=== PATIENT | male | born 1960 | race Caucasian/White ===

== ENCOUNTER 2017-10-29 10:24 | Day surgery (SDC) | payer OTHER ==
[~2017-10-29] VITALS: Ht 182.9 cm; Wt 100.9 kg
[~2017-10-29 10:24] MED LIST: ALBU90OI INH; ALBU90OI6 INH; ALBU90OI61 INH; ALLO100 PO; ALPR1 PO; AMOX1XR PO; ASPI325 PO; ASPI325EC PO; ATOR10; Albuterol2.5 MG/0.5 INH; BACL10 PO; BENZ100A PO; BUME1 PO; BUME2 PO; CALCAVITDA PO; CLARITIN10 MG PO; CRUTCH4 USE; DULERA 100 MCG/13 GM INH; Diovan40 MG PO; FLUSAL2505 IH; FURO40 PO; Ferrous Sulfat325 MG PO; Gas-X125 MG PO; IBUP800 PO; IPRATR-ALBUTEROL; KETO10 PO; LEVO750 PO; LIDO700A20 TOP; MECL25 PO; METO50ER; MONTELUKAST SOD10 MG PO; Micro-K10 MEQ PO; NEBI5 PO; NITR.4SL SL; Nitrostat0.4 MG SL; OMEP20ER PO; OMEPRAZOLE MAGN20 MG PO; ONDA4ODT MM; OXYACE5T PO; POTA10T PO; PRED10 PO; PRED5 PO; PROAIR RESPICL90 MCG INH; PSEU120ER PO; ROPI1 PO; ROPI2 PO; RXOXYACE PO; Requip3 MG PO; SULPREOPSO OD; SYMBICORT; TIOT18 INH; TORS10 PO; TORSE20 PO; Tessalon Perle100 MG PO; VALS80 PO; VITAMIN C500 MG PO; Valium5 MG PO; ZOLP10 PO; Zithromax Tri-500 MG PO
== END 2017-10-29 15:04 | disposition home or self-care (01) ==
LOC: ORSCSDS 10:24
PROVIDERS: Orthopaedic Surgery
PROC: 0RNJ4ZZ Release Right Shoulder Joint, Percutaneous Endoscopic Approach (ICD-10-PCS; principal; 2017-10-29 12:00)
PROC: 0LQ14ZZ Repair Right Shoulder Tendon, Percutaneous Endoscopic Approach (ICD-10-PCS; principal; 2017-10-29 12:00)
PROC: 0LS14ZZ Reposition Right Shoulder Tendon, Percutaneous Endoscopic Approach (ICD-10-PCS; principal; 2017-10-29 12:00)
PROC: 0RBJ4ZZ Excision of Right Shoulder Joint, Percutaneous Endoscopic Approach (ICD-10-PCS; principal; 2017-10-29 12:00)
DX: M75.121 Complete rotator cuff tear or rupture of right shoulder, not specified as traumatic (principal); M75.21 Bicipital tendinitis, right shoulder; M75.41 Impingement syndrome of right shoulder; M75.01 Adhesive capsulitis of right shoulder; I10 Essential (primary) hypertension; I25.2 Old myocardial infarction; I50.9 Heart failure, unspecified; J44.9 Chronic obstructive pulmonary disease, unspecified; Z79.899 Other long term (current) drug therapy; Z79.82 Long term (current) use of aspirin
CPT/HCPCS: C1713; J0171; J0690; J1100; J2250; J2405; J3010; J7120

== ENCOUNTER 2018-01-04 05:45 | Emergency (ER) | payer OTHER ==
[~2018-01-04] VITALS: Ht 182.9 cm; Wt 106.6 kg
[2018-01-04] MEDS ORDERED: Valium5 MG PO (06:47)
[2018-01-04] MEDS ORDERED: Prednisone20 MG PO (06:47)
== END 2018-01-04 07:20 | disposition home or self-care (01) ==
LOC: ER 05:45
DX: T14.8XXA Other injury of unspecified body region, initial encounter (principal); M25.551 Pain in right hip; M25.511 Pain in right shoulder; I25.2 Old myocardial infarction; Z88.5 Allergy status to narcotic agent; Z91.012 Allergy to eggs; Z79.52 Long term (current) use of systemic steroids; Z91.018 Allergy to other foods; Z88.7 Allergy status to serum and vaccine; Z88.2 Allergy status to sulfonamides; Z91.048 Other nonmedicinal substance allergy status; Z91.02 Food additives allergy status; Z88.8 Allergy status to other drugs, medicaments and biological substances; Z79.899 Other long term (current) drug therapy; Z79.82 Long term (current) use of aspirin; Z87.891 Personal history of nicotine dependence; W19.XXXA Unspecified fall, initial encounter
CPT/HCPCS: 73030; 73502; J1885

== ENCOUNTER 2018-03-11 14:41 | Day surgery (SDC) | payer OTHER ==
[~2018-03-11 14:41] MED LIST changes: +Prednisone20 MG PO
== END 2018-03-11 22:49 | disposition home or self-care (01) ==
LOC: RAD 14:41 → MRI 16:00 → RAD 22:49
PROC: BP38ZZZ Magnetic Resonance Imaging (MRI) of Right Shoulder (ICD-10-PCS; principal; 2018-03-11)
DX: M75.121 Complete rotator cuff tear or rupture of right shoulder, not specified as traumatic (principal); M75.41 Impingement syndrome of right shoulder; M75.21 Bicipital tendinitis, right shoulder
CPT/HCPCS: 23350; 73222; 77002; A9577; Q9967

== ENCOUNTER 2018-04-14 11:37 | Emergency (ER) | payer OTHER ==
[~2018-04-14] VITALS: Ht 152.4 cm; Wt 99.8 kg
[2018-04-14] MEDS ORDERED: POTCHL10ER PO (12:06)
[2018-04-14] MEDS ORDERED: IBUP800 PO (12:06)
[2018-04-14 12:13] LABS: International Normalized Ratio 0.99; Prothrombin Time Results 10.2 Sec (9.7-11.5)
[2018-04-14] MEDS ORDERED: Percocet 5-3251 EACH PO (15:10)
[2018-04-14] MEDS ORDERED: Zofran Odt4 MG SL (15:10)
== END 2018-04-14 16:00 | disposition home or self-care (01) ==
LOC: ER 11:37
PROVIDERS: Nurse Practitioner Family
DX: M79.671 Pain in right foot (principal); M25.571 Pain in right ankle and joints of right foot; I10 Essential (primary) hypertension; I25.10 Atherosclerotic heart disease of native coronary artery without angina pectoris; I25.2 Old myocardial infarction; Z88.5 Allergy status to narcotic agent; Z91.012 Allergy to eggs; Z91.018 Allergy to other foods; Z88.7 Allergy status to serum and vaccine; Z88.2 Allergy status to sulfonamides; Z88.8 Allergy status to other drugs, medicaments and biological substances; Z79.899 Other long term (current) drug therapy; Z79.82 Long term (current) use of aspirin; Z87.891 Personal history of nicotine dependence
CPT/HCPCS: 36415; 73610; 85610; 93922; 96374; 99284-25; J1885

== ENCOUNTER 2018-10-05 16:14 | Emergency (ER) | payer OTHER ==
[~2018-10-05] VITALS: Ht 180.3 cm; Wt 99.3 kg
[~2018-10-05 16:14] MED LIST changes: +ALBU3IS NEB; -Albuterol2.5 MG/0.5 INH; -MECL25 PO; +MOTION RELIEF25 MG PO; +POTCHL10ER PO; +Percocet 5-3251 EACH PO; -TORSE20 PO; +Zofran Odt4 MG SL
== END 2018-10-05 16:55 | disposition home or self-care (01) ==
LOC: ER 16:14
DX: J39.2 Other diseases of pharynx (principal); Z88.5 Allergy status to narcotic agent; Z91.012 Allergy to eggs; Z88.2 Allergy status to sulfonamides; Z91.048 Other nonmedicinal substance allergy status; Z79.899 Other long term (current) drug therapy; Z79.82 Long term (current) use of aspirin; I25.2 Old myocardial infarction; Z95.5 Presence of coronary angioplasty implant and graft; Z87.891 Personal history of nicotine dependence
CPT/HCPCS: 99282; Q0163

== ENCOUNTER 2018-10-30 12:10 | Emergency (ER) | payer OTHER ==
[~2018-10-30] VITALS: Ht 182.9 cm; Wt 97.5 kg
[2018-10-30 13:07] LABS: BASOPHILS ABSOLUTE AUTO 0.06 K/mm3 (0.00-0.23); BASOPHILS PERCENT AUTO 1 % (0-2); EOSINOPHILS ABSOLUTE AUTO 0.13 K/mm3 (0.00-0.68); EOSINOPHILS PERCENT AUTO 1 % (0-6); Hematocrit 41.1 % (37.0-53.0); Hemoglobin 13.3 g/dL (13.5-17.5); IMMATURE GRAN ABSOLUTE AUTO 0.02 K/mm3 (0.00-0.10); IMMATURE GRAN PERCENT AUTO 0 % (0-1); LYMPHOCYTES ABSOLUTE AUTO 1.99 K/mm3 (0.84-5.20); LYMPHOCYTES PERCENT AUTO 20 % (21-46); MONOCYTES ABSOLUTE AUTO 0.72 K/mm3 (0.16-1.47); MONOCYTES PERCENT AUTO 7 % (4-13); Mean Corpuscular HGB 27.3 pg (26.0-34.0); Mean Corpuscular HGB Conc 32.4 g/dL (31.5-36.5); Mean Corpuscular Volume 84 fL (80-100); Mean Platelet Volume 10.6 fL (9.1-12.4); NEUTROPHILS ABSOLUTE AUTO 7.01 K/mm3 (1.96-9.15); NEUTROPHILS PERCENT AUTO 71 % (41-73); Platelet Count 229 K/mm3 (150-400); RDW Coefficient Variation 13.8 % (11.7-14.2); RDW Standard Deviation 42.2 fL (35.1-46.3); Red Blood Cell Count 4.88 M/mm3 (4.30-5.90); White Blood Cell Count 9.93 K/mm3 (4.00-11.30)
[2018-10-30] MEDS ORDERED: NITR.4SL SL (13:20)
[2018-10-30 13:22] LABS: Alanine Aminotransfer (ALT/SGP 12 U/L (12-78); Albumin, Blood 3.3 g/dL (3.4-5.0); Albumin/Globulin Ratio 0.7 (0.8-1.8); Alk Phos 104 U/L (50-136); Anion Gap 8 mmol/L (6-16); Aspartate Aminotrans (AST/SGOT 26 U/L (12-37); Bilirubin, Total 0.4 mg/dL (0.1-1.0); Blood Urea Nitrogen 7 mg/dL (8-24); CO2, Blood 26 mmol/L (21-32); Calcium, Blood 8.6 mg/dL (8.5-10.1); Chloride, Blood 104 mmol/L (98-108); Creatinine, Blood 1.17 mg/dL (0.60-1.20); Globulin, Blood 4.7 g/dL (2.2-4.0); Glomerular Filtration Rate >60 (60-); Glucose, Blood 93 mg/dL (70-99); Potassium, Blood 3.8 mmol/L (3.5-5.5); Sodium, Blood 138 mmol/L (136-145)
== END 2018-10-30 15:36 | disposition home or self-care (01) ==
LOC: ER 12:10
PROVIDERS: Emergency Medicine
DX: R53.1 Weakness (principal); R42 Dizziness and giddiness; I10 Essential (primary) hypertension; I25.10 Atherosclerotic heart disease of native coronary artery without angina pectoris; I25.2 Old myocardial infarction; Z88.5 Allergy status to narcotic agent; Z91.012 Allergy to eggs; Z91.018 Allergy to other foods; Z88.7 Allergy status to serum and vaccine; Z88.8 Allergy status to other drugs, medicaments and biological substances; Z91.048 Other nonmedicinal substance allergy status; Z91.02 Food additives allergy status; Z79.899 Other long term (current) drug therapy; Z79.82 Long term (current) use of aspirin; Z87.891 Personal history of nicotine dependence
CPT/HCPCS: 70450; 80053; 85025; 93005; 93010; 96360; 99284-25; J7030

== ENCOUNTER 2018-11-10 20:56 | Inpatient (IN) | payer OTHER ==
[~2018-11-10] VITALS: Ht 182.9 cm; Wt 96.5 kg
[2018-11-10 21:31] LABS: BASOPHILS ABSOLUTE AUTO 0.05 K/mm3 (0.00-0.23); BASOPHILS PERCENT AUTO 0 % (0-2); EOSINOPHILS ABSOLUTE AUTO 0.19 K/mm3 (0.00-0.68); EOSINOPHILS PERCENT AUTO 2 % (0-6); Hematocrit 38.6 % (37.0-53.0); Hemoglobin 12.6 g/dL (13.5-17.5); IMMATURE GRAN ABSOLUTE AUTO 0.05 K/mm3 (0.00-0.10); IMMATURE GRAN PERCENT AUTO 0 % (0-1); LYMPHOCYTES ABSOLUTE AUTO 2.06 K/mm3 (0.84-5.20); LYMPHOCYTES PERCENT AUTO 18 % (21-46); MONOCYTES ABSOLUTE AUTO 0.91 K/mm3 (0.16-1.47); MONOCYTES PERCENT AUTO 8 % (4-13); Mean Corpuscular HGB 27.8 pg (26.0-34.0); Mean Corpuscular HGB Conc 32.6 g/dL (31.5-36.5); Mean Corpuscular Volume 85 fL (80-100); Mean Platelet Volume 10.1 fL (9.1-12.4); NEUTROPHILS ABSOLUTE AUTO 8.07 K/mm3 (1.96-9.15); NEUTROPHILS PERCENT AUTO 71 % (41-73); Platelet Count 233 K/mm3 (150-400); RDW Coefficient Variation 14.3 % (11.7-14.2); RDW Standard Deviation 44.2 fL (35.1-46.3); Red Blood Cell Count 4.54 M/mm3 (4.30-5.90); White Blood Cell Count 11.33 K/mm3 (4.00-11.30)
[2018-11-10 21:54] LABS: Alanine Aminotransfer (ALT/SGP 9 U/L (12-78); Albumin, Blood 3.2 g/dL (3.4-5.0); Albumin/Globulin Ratio 0.7 (0.8-1.8); Alk Phos 107 U/L (50-136); Anion Gap 12 mmol/L (6-16); Aspartate Aminotrans (AST/SGOT 23 U/L (12-37); Bilirubin, Total 0.4 mg/dL (0.1-1.0); Blood Urea Nitrogen 6 mg/dL (8-24); Bun/Creatinine Ratio 5.3 (12.0-20.0); CO2, Blood 21 mmol/L (21-32); Calcium, Blood 8.9 mg/dL (8.5-10.1); Chloride, Blood 110 mmol/L (98-108); Creatinine, Blood 1.13 mg/dL (0.60-1.20); Globulin, Blood 4.8 g/dL (2.2-4.0); Glomerular Filtration Rate >60 (60-); Glucose, Blood 90 mg/dL (70-99); Potassium, Blood 3.4 mmol/L (3.5-5.5); Sodium, Blood 143 mmol/L (136-145)
[2018-11-10 21:58] LABS: Troponin I 0.755 ng/mL (0.000-0.040)
[2018-11-10] MEDS ORDERED: LOSA25 PO (23:27)
[2018-11-10 23:28] LABS: International Normalized Ratio 0.96; Prothrombin Time Results 10.2 Sec (9.7-11.5)
[2018-11-10] MEDS ORDERED: C-1000 WITH R1000 MG PO (23:29)
[2018-11-10] MEDS ORDERED: ALPR.5 PO (23:31)
[2018-11-10] MEDS ORDERED: Vitamin B-121000 MCG PO (23:32)
--- NOTE | 2018-11-11 01:55 | NUR ---
ASSUMED CARE OF PT. VS STABLE. PT COMPLAINS OF HEADACHE. PT STATES HE RECENTLY HAD AN OCULAR NERVE BLOCK DUE TO CHRONIC MIGRAINES. PT STATES HIS CHEST PAIN RETURNED AT 9/10 SHARP PAIN. PT MEDICATED PER EMAR. PT STATES PAIN HAS RESLOVED TO 4/10. HEPARIN GTT INF. LACTIC ACID ELEVATED AT 2.5. DR LEA NOTIFIED AND NO NEW ORDERS PROVIDED AT THIS TIME. PT IS DIAPHORETIC. FAN PROVIDED AND COOL COMPRESS FOR THE HEADACHE. PT STATES SOME RELIEF. PT HAS LEFT SIDED WEAKNESS DUE TO PREVIOUS CVA. PT STATES HE WALKS AT HOME, BUT NEEDS ASSISTANCE WITH ADLS AND HAS A CAREGIVER. WILL CONTINUE TO MONITOR. CALL LIGHT IN REACH.
--- NOTE | 2018-11-11 04:48 | NUR ---
SHIFT SUMMARY PT ALERT AND ORIENTED. VS STABLE. NO CHANGES SINCE INITIAL ASSESSMENT. PT RESTING AT THIS TIME WITH OBVIOUS CHEST RISE AND FALL. WILL CONTINUE TO MONITOR AND REPORT TO ONCOMING RN. CALL LIGHT IN REACH.
[2018-11-11 05:41] LABS: Hematocrit 41.6 % (37.0-53.0); Hemoglobin 13.2 g/dL (13.5-17.5); Mean Corpuscular HGB Conc 31.7 g/dL (31.5-36.5); Mean Corpuscular Volume 85 fL (80-100); Platelet Count 226 K/mm3 (150-400); RDW Coefficient Variation 14.6 % (11.7-14.2); RDW Standard Deviation 45.1 fL (35.1-46.3); Red Blood Cell Count 4.88 M/mm3 (4.30-5.90); White Blood Cell Count 8.29 K/mm3 (4.00-11.30)
[2018-11-11 06:03] LABS: Alanine Aminotransfer (ALT/SGP 12 U/L (12-78); Albumin, Blood 3.1 g/dL (3.4-5.0); Albumin/Globulin Ratio 0.7 (0.8-1.8); Alk Phos 104 U/L (50-136); Anion Gap 7 mmol/L (6-16); Aspartate Aminotrans (AST/SGOT 22 U/L (12-37); Bilirubin, Total 0.7 mg/dL (0.1-1.0); Blood Urea Nitrogen 8 mg/dL (8-24); Bun/Creatinine Ratio 7.8 (12.0-20.0); CO2, Blood 24 mmol/L (21-32); Calcium, Blood 8.4 mg/dL (8.5-10.1); Chloride, Blood 110 mmol/L (98-108); Creatinine, Blood 1.03 mg/dL (0.60-1.20); Globulin, Blood 4.6 g/dL (2.2-4.0); Glomerular Filtration Rate >60 (60-); Glucose, Blood 106 mg/dL (70-99); Potassium, Blood 4.6 mmol/L (3.5-5.5); Sodium, Blood 141 mmol/L (136-145); Total Protein, Blood 7.7 g/dL (6.4-8.2)
[2018-11-11 06:21] LABS: Troponin I 0.558 ng/mL (0.000-0.040)
--- NOTE | 2018-11-11 09:10 | NUR ---
Echocardiogram completed.
[2018-11-11 11:17] LABS: Source, Urine Clean Catch
--- NOTE | 2018-11-11 11:19 | NUR ---
BEGINNING OF SHIFT Assumed care at 0700. Report recieved from Digna SHIRLEY. Pt on 2 LPM NC. Titrated to room air. Tolerated well. Home requip obtained. Caregiver did not bring in home bystolic. Pt states he is feeling short of breath but this is normal for him "for a few weeks". Bed in lowest position. Call light in reach. Pt denies need at this time.
[2018-11-11 11:40] LABS: Appearance, Urine Clear (Clear); Bilirubin, Urine Neg (Neg); Blood, Urine Neg (Neg); Color, Urine Yellow (P-Yellow); Glucose Qualitative, Urine Neg (Neg); Ketones, Urine Neg (Neg); Leukocyte Esterase, Urine Neg (Neg); Nitrite, Urine Neg (Neg); Protein, Urine Neg (Neg); Specific Gravity, Urine 1.015 (1.003-1.022); Urobilinogen, Urine NORM (Normal)
--- NOTE | 2018-11-11 12:59 | NUR ---
UPDATE This RN paged Dr Delaney with new cardiology consult. New orders recieved. Pt states he is itchy. The pt states he does not want to take his requip or bystolic since they have blue dye and he is now certain that is what is causing his itchiness. This RN placed call to Dr Castellon to notify him of pt's wishes. New orders entered for carvedilol. Will continue to closely monitor.
[2018-11-11 13:51] LABS: Troponin I 0.439 ng/mL (0.000-0.040)
--- NOTE | 2018-11-11 14:56 | NUR ---
Initial palliative care consult: Met with Jonnathan by request from nursing. Jonnathan is a 58 year old with a history of back surgery, CAD, CVA, Hep C, lung cancer, ALS. He was admitted with a pneumonia. He is accompanied by two friends and his live in 24 hr/day caregiver. He is estranged from his family except for his 19 year old granddaughter. He is very clear in stating that he doesn't want to seek any medical treatment for his lung cancer. He reports several family members uncles, grandfather, father who have from cancer after being "miserable from the treatments." He wishes to go home and live out his life how he wants to live it. He recounts many life adventures and activities that he is very proud of. He wants to have control of the life that he has left. He currently fired his last PCP, however he has an appointment with his new PCP on 11/18 Zach at [facility]. He is requesting to be discharged today if possible and would like to have hospice services provided by [facility]. Updated nursing who will contact Dr. Castellon for discharge orders. Dr. Castellon has already placed a hospice referral in the EMR. LM for Gricelda Mijares CM RN of pt's wishes to go home with hospice as soon as possible. Pt states that if hospice cannot not see him for a few days that he still wishes to be discharged today. Explained hospice services to pt, friends and caregiver. Questions answered.
[2018-11-11] MEDS ORDERED: ALBU3IS INH (17:00)
[2018-11-11] MEDS ORDERED: CARV3.125 PO (17:10)
[2018-11-11] MEDS ORDERED: DOCU100 PO (17:11)
[2018-11-11] MEDS ORDERED: TIOT18 INH (17:12)
[2018-11-11] MEDS ORDERED: DULERA 100 MCG/13 GM INH (17:12)
[2018-11-11] MEDS ORDERED: IBUP600 PO (17:13)
--- NOTE | 2018-11-11 18:21 | NUR ---
PT DEPARTURE FROM UNIT This RN requested palliative care to speak with patient regarding advanced care planning. Dr Delaney spoke to pt and reinforced need for palliative care for this patient. Gricelda from palliative care spoke to pt. Orders entered by Dr Castellon for hospice referral. This RN placed call to Dr Castellon for discharge orders as pt wanted to go home. This RN asked Gricelda from marriage and family social worker to speak with patient. Discharge orders were entered by Dr Castellon. This RN provided an update to pt and family, and stated that this RN would get started on the discharge paperwork. This RN continued to check on patient and caregiver, to provide updates and ask questions (i.e. which pharmacy to send medication orders to). This RN called in new medications to [facility] in [place], speaking to pharmacist and requesting medications are available for pickup this evening, acknowledging that they close at 6 pm. At 1705, Carolina MARES asked this RN if pt was going home, as pt was not in room and staff had seen the pt leaving the unit via wheelchair with the caregiver and her two male companions. This RN checked patient entrance and emergency entrace and did not see the patient. This RN continued completing discharge packet as this RN expected pt and family did not leave the hospital as the pt still had IV access in place. cinder crew worker aware. cinder crew worker placed call to security, asking to review tapes to see if pt left facility. Pt was witnessed leaving facility. cinder crew worker called caregiver, Carl, stating that pt needs to return to have his IVs removed and receive his discharge education. Caregiver stated "Well he's just the kind of person that when he's ready to go, he's ready to go." cinder crew worker reinforced that patient needs to return. Caregiver stated "okay, I'll try." At this time, pt has not yet returned.
--- NOTE | 2018-11-11 19:18 | NUR ---
SYMONE Hurley RN called pt to inquire if they were coming in. Pt stated "I already took 'em out", referring to the IVs. Pt stated "I'll be by tomorrow" in regards to picking up his home medications and discharge instructions.
== END 2018-11-11 18:23 | disposition hospice, home (50) | DRG 193 ==
LOC: ER 20:56 → PCU 22:53
PROVIDERS: Emergency Medicine; ADMIT Internal Medicine
DX: J18.9 Pneumonia, unspecified organism (principal); J96.01 Acute respiratory failure with hypoxia; C34.90 Malignant neoplasm of unspecified part of unspecified bronchus or lung; I25.10 Atherosclerotic heart disease of native coronary artery without angina pectoris; M79.7 Fibromyalgia; R53.82 Chronic fatigue, unspecified; Z79.82 Long term (current) use of aspirin; R19.7 Diarrhea, unspecified; E87.6 Hypokalemia; I69.998 Other sequelae following unspecified cerebrovascular disease; R61 Generalized hyperhidrosis; J44.9 Chronic obstructive pulmonary disease, unspecified
CPT/HCPCS: 36415; 71046; 71260; 80053; 81003; 82550; 83605; 83880; 84145; 84484; 85025; 85027; 85610; 85730; 87040; 87070; 87205; 92610; 93005; 93010; 93306; 94640; 94760; 96365; 96375; 99285-25; J1170; J1644; J2405; J2543; J3010; J3480; J7030; Q9967